=== PATIENT | female | born 2005 | race Two or more races ===

== ENCOUNTER 2024-10-11 06:22 | Outpatient (CLI) | payer OTHER ==
[2024-10-11] MEDS ORDERED: iohexol 300 MG/1 ML 50ml polymer ONE (06:42)
[2024-10-11] MEDS ORDERED: LIDOcaine 1%/PF 5ML 10 MG/ML VIAL ONE (06:42)
[2024-10-11] MEDS ORDERED: GADOTERATE MEGLUMINE 7.5 MMOL/15 ML VIAL IV ONE (06:42)
[2024-10-11] MEDS ORDERED: LIDOcaine 1% 30ml preserv. free vial ONE (06:42)
--- NOTE | 2024-10-11 07:53 | RADIOLOGY REPORT ---
C-ARM FLUOROSCOPY: PROCEDURE: Right elbow injection FLUOROSCOPY TIME: 0.1 minute DAP: 1 mgy FINDINGS: Spot intraoperative C arm radiographs demonstrating right elbow injection. IMPRESSION: Please refer to surgical report for detailed findings.
--- NOTE | 2024-10-11 15:04 | RADIOLOGY REPORT ---
EXAM: MR MRI UPPER EXTREMITY RIGHT INDICATION: PAIN IN RIGHT ELBOW TECHNIQUE: Multisequence, multiplanar MRI of the right elbow was performed after the intra-articular injection of gadolinium contrast material. COMPARISON: None FINDINGS: [MEDIAL ELBOW]: Partial tear at the distal insertion at the sublime tubercle with underlying contrast without complete disruption of the ulnar collateral ligament. At the proximal origin the ulnar colla teral ligament, favor low to intermediate grade sprain without complete disruption, limited evaluatio n on low resolution. Intact common flexor tendon group. [ANTERIOR ELBOW]: Intact biceps and brachialis tendon attachments. No interosseous or bicipital radia l bursal distention to suggest bursitis. [LATERAL ELBOW]: No complete disruption of the radial collateral, lateral ulnar collateral, and annul ar ligaments. Suspected low-grade sprain of the radial collateral ligament, incompletely characterize d (7-10). Intact common extensor tendon origin. [POSTERIOR ELBOW]: Intact triceps tendon insertion. Fluid along the posterior aspect of the oval in t he region of the olecranon bursa which may be posttraumatic bursitis measuring up to 3.7 cm [JOINT SPACE]: No intra-articular body. Small amount of iatrogenic injected air. No measurable cartil age defect. [BONES]: Osteitis / bone marrow contusion suspected versus partial volume averaging along the lateral epicondyle to capitellum (a series 7, image 10). [MUSCLES]: Muscle strain of the anterior elbow primarily affecting the brachioradialis at the anterio r distal arm (7-14) [NEUROVASCULAR]: At the cubital tunnel, normal signal intensity and morphology of the traversing ulna r nerve. The overlying cubital tunnel retinaculum is intact. Intact radial and median neurovascular b undles. IMPRESSION: 1. Partial tear at the distal insertion at the sublime tubercle with underlying contrast without comp lete disruption of the ulnar collateral ligament. 2. Favor low to intermediate-grade sprain of the proximal anterior band of the ulnar collateral ligam ent. 3. Suspected low-grade sprain of the radial collateral ligament. 4. Fluid along the posterior aspect of the oval in the region of the olecranon bursa which may be pos ttraumatic bursitis measuring up to 3.7 cm. 5. Osteitis / bone marrow contusion suspected versus partial volume averaging along the lateral epico ndyle to capitellum. 6. Muscle strain of the anterior elbow primarily affecting the brachioradialis at the anterior distal arm.
== END 2024-10-11 23:59 | disposition home or self-care (01) ==
LOC: MRI 06:22
PROVIDERS: ATTEND Family Medicine Sports Medicine
DX: M25.521 Pain in right elbow (principal); S53.442A Ulnar collateral ligament sprain of left elbow, initial encounter; S53.441A Ulnar collateral ligament sprain of right elbow, initial encounter; S46.812A Strain of other muscles, fascia and tendons at shoulder and upper arm level, left arm, initial encounter; X58.XXXA Exposure to other specified factors, initial encounter; Y93.89 Activity, other specified; Y92.89 Other specified places as the place of occurrence of the external cause; Y99.8 Other external cause status
CPT/HCPCS: 24220; 73222; 77002; A9575; J2003; J3490; Q9967